=== PATIENT | male | born 1955 | race Caucasian/White ===

== ENCOUNTER 2022-02-27 05:01 | Inpatient (IN) ==
--- NOTE | 2022-02-27 05:19 | Emergency Department Note ---
HPI General Chief complaint: Shortness of Breath/Dyspnea Stated complaint: SOB Time Seen by Provider: 02/27/22 05:18 Source: patient and EMS Mode of arrival: EMS Limitations: no limitations History of Present Illness HPI Narrative: 66-year-old male with past medical history of COPD presenting with shortness of breath. Patient reports for the last week and a half he has had progressively worsening shortness of breath. He thinks it started when he was outside and his pollen allergies flared up. States he has developed a cough productive of beige and dark green sputum. Patient wears home O2 at night. On EMS arrival he was satting 83% on room air. No associated chest pain, fever, or leg swelling. Denies any prior cardiac history. Not on anticoagulation. Related Data Home Medications Medication Instructions Recorded Confirmed albuterol sulfate 90 mcg/actuation 2 puff INHALATION Q4H PRN g 03/16/21 12/16/21 aerosol inhaler ascorbic acid (vitamin C) PO 03/16/21 12/16/21 cholecalciferol (vitamin D3) PO 03/16/21 12/16/21 loratadine 5 mg-pseudoephedrine ER 1 tab PO ONCE PRN tab 03/16/21 12/16/21 120 mg tablet,extended release,12hr (Loratadine-D) multivitamin 1 tab PO QAM 08/17/21 12/16/21 Previous Rx's Medication Instructions Recorded budesonide 160 mcg-glycopyr 9 2 inh INHALATION BID #10.7 g 09/03/21 mcg-formot 4.8 mcg/actuation HFA inhaler (Breztri Aerosphere) Allergies Allergy/AdvReac Type Severity Reaction Status Date / Time animal dander Allergy Mild other Verified 02/27/22 05:02 grass pollen Allergy Mild Other Verified 02/27/22 05:02 mold Allergy Mild Other Verified 02/27/22 05:02 scotchbroom Allergy Mild tightness Uncoded 12/16/21 14:33 in chest Review of Systems ROS ROS Narrative: Narrative: Constitutional: Denies fever or chills ENT ED: Denies throat pain Cardiovascular: Denies chest pain or palpitations Respiratory: Reports shortness of breath, cough and wheezes; Denies stridor Gastrointestinal: Denies abdominal pain, nausea or vomiting Genitourinary: Denies dysuria Musculoskeletal: Denies back pain or joint swelling Integumentary: Denies rash Neurological: Denies headache Psychiatric: Denies anxiety Hematological/Lymphatic: Denies easy bruising PFSH Narrative Patient History Narrative: Narrative: Medical/Surgical/Family History All Active Problems (Updated 02/27/22 @ 06:59 by Deon Ortega MD) Pneumonia involving right lung (Acute) Hypersomnia (Chronic) Nocturnal hypoxia (Chronic) Elevated blood pressure reading (Chronic) Soft tissue mass (Chronic) Other emphysema (Chronic) SOB (shortness of breath) (Chronic) COPD (chronic obstructive pulmonary disease) (Chronic) Dyspnea on exertion (Chronic) Medical History COPD (chronic obstructive pulmonary disease) Dyspnea on exertion Elevated blood pressure reading Hypersomnia Nocturnal hypoxia Other emphysema SOB (shortness of breath) Soft tissue mass Surgical History History of surgery on arm Rt forearm tendon repair. History of vasectomy History of wisdom tooth extraction Family History Mother , 91 Diabetes Goiter Digestive problems Father , 79 Parkinsons Edema Sister Edema Social History Smoking Status: Never smoker Alcohol Intake Frequency: 0-2 drinks per day Substance Use: marijuana Exam Narrative Narrative: Narrative: General Limitations: no limitations General appearance: Present alert and in no apparent distress Head Head: Present atraumatic and normocephalic Eye Eye: Present normal appearance and EOMI; Absent scleral icterus or conjunctival injection ENT ENT: Present mucous membranes moist Neck Neck: Present trachea midline Chest Chest: Present symmetric chest wall rise Respiratory Respiratory: Present respiratory distress (Mild), prolonged expiratory phase and other (Significantly diminished breath sounds in both lungs); Absent rales/crackles, wheezes, stridor or accessory muscle use Cardiovascular Cardiovascular: Present normal rhythm and tachycardia; Absent systolic murmur or diastolic murmur Adbominal Abdominal: Present soft; Absent distention, tenderness, guarding, rebound or rigidity Extremities Extremities: Present normal inspection; Absent pretibial edema Back Back: Present normal inspection Neurological Neurological: Present alert and oriented X3; Absent motor sensory deficit Psychiatric Psychiatric: Present normal affect and normal mood Skin Skin: Present warm (WNL) and dry Course Consultations Consultation #1: Dr. Patel, hospitalist Time: 07:05 Vital Signs Vital signs: Vital Signs Temperature 99.2 F H 02/27/22 05:03 Pulse Rate 115 H 02/27/22 05:03 Respiratory Rate 22 02/27/22 05:03 Blood Pressure 148/121 02/27/22 05:03 Pulse Oximetry (%) 90 02/27/22 05:03 Temperature 99.2 F H 02/27/22 05:03 Pulse Rate 117 H 02/27/22 06:51 Respiratory Rate 18 02/27/22 06:51 Blood Pressure 139/68 02/27/22 06:51 Pulse Oximetry (%) 93 02/27/22 06:39 MDM MDM Narrative Medical decision making narrative: 66-year-old male presenting with progressive shortness of breath and productive cough. He is satting 93 to 95% on 6 L O2 via nasal cannula. He has severely poor air movement in both lungs on exam. EKG shows diffuse ST depressions with no ST elevation. Solu-Medrol 125 mg IV and continuous neb treatment ordered. Will obtain CXR, labs, VBG, blood cultures, and COVID test. Chest x-ray shows significant infiltrate in the right middle and lower lobes. 3.375 g IV Zosyn ordered. VBG shows a pH of 7.43 with a pCO2 of 61 and pO2 of 30.9. WBC count is 25.6. Rapid COVID is negative. 0705: Patient endorsed Dr. Patel, hospitalist, who will accept the patient. Lab Data Result diagrams: 02/27/22 06:13 02/27/22 06:13 Labs: Lab Results 02/27/22 02/27/22 02/27/22 Range/Units 06:13 06:13 06:13 WBC 25.6 H (4.5-11.0) K/mcL RBC 4.23 L (4.63-6.08) M/mcL Hgb 12.6 L (13.7-17.5) g/dL Hct 38.7 L (40.1-51.0) % MCV 91.5 (80.0-100.0) fL MCH 29.8 (26.0-34.0) pg MCHC 32.6 (31.0-36.0) g/dL RDW 13.4 (11.5-14.5) % Plt Count 495 H (140-440) K/mcL MPV 10.9 H (7.4-10.4) fL Neut % (Auto) 85.6 H (38.0-78.0) % Lymph % (Auto) 4.6 L (15.5-49.0) % [place] % (Auto) 9.2 (1.0-12.0) % Eos % (Auto) 0.2 (0.0-7.0) % Baso % (Auto) 0.4 (0.0-2.0) % Lymph # (Auto) 1.17 L (1.50-4.80) K/mcL [place] # (Auto) 2.36 H (0.10-0.90) K/mcL Eos # (Auto) 0.05 (0.00-0.70) K/mcL Baso # (Auto) 0.09 (0.00-0.30) K/mcL Absolute Neutrophils 21.88 H (1.80-8.00) K/mcL ABG Methemoglobin 0.3 L (0.4-1.5) % VBG pH 7.43 H (7.32-7.42) U VBG pCO2 61.0 H* (41.0-51.0) mmHg VBG pO2 30.9 (25.0-40.0) mmHg VBG HCO3 39.4 H (24.0-28.0) mmol/L VBG Total CO2 41.3 H* (25.0-29.0) mmol/L VBG O2 Saturation 58.8 (40.0-70.0) % VBG Base Excess 12 H (-2-3) Carboxyhemoglobin 4.7 H (0.0-1.5) % THgb Total Hemoglobin 14.2 (13.5-16.5) gm/Dl Sodium 138 (133-145) mmol/L Potassium 3.0 L (3.3-5.1) mmol/L Chloride 88 L (96-108) mmol/L Carbon Dioxide 39 H (22-30) mmol/L Anion Gap 11.0 (8.0-16.0) BUN 22 (8-23) mg/dL Creatinine 0.9 (0.7-1.2) mg/dL GFR Calculation 87 Glucose 146 H (70-105) mg/dL Calcium 9.1 (8.6-10.4) mg/dL Total Bilirubin 1.0 (0.1-1.0) mg/dL AST 76 H (<40) U/L ALT 60 H (<40) U/L Alkaline Phosphatase 190 H (39-117) U/L Total Protein 7.0 (5.9-8.4) gm/dL Albumin 2.2 L (3.2-5.2) gm/dL Globulin 4.8 H (2.2-3.7) gm/dL Albumin/Globulin Ratio 0.5 L (1.0-2.3) ED POC Tests ED POC Tests: DELVIN - SARS Antigen Negative Radiology Data Radiology results reviewed: Yes I reviewed the patient's radiology results. Radiology results narrative: Chest x-ray: Significant infiltrates present in the right middle and right lower lobes, per my interpretation. EKG Data EKG #1: EKG attestation: Yes I reviewed and interpreted this EKG. and Yes There are no EKG findings of acute coronary syndrome EKG results narrative: Sinus tachycardia at [address] depressions noted, no ST elevation Interpretation: nonspecific ST-T wave changes Discharge Plan Patient/Caregiver Discharge Instructions Pt seen by [facility]/PA only: No Clinical Impression: Pneumonia involving right lung Patient Disposition: Xfer As Inpt ([facility]) Condition: Fair Follow up with: Karlie Knight ARNP [Primary Care Provider] - Prescriptions: No Action [facility] 160-9-4.8 mcg/actuation HFA aerosol inhaler 2 inh inhalation BID Qty: 10.7 6RF Rx Instructions: Inhale two puffs by mouth twice daily. cholecalciferol (vitamin D3) PO 0RF ascorbic acid (vitamin C) PO 0RF albuterol sulfate 90 mcg/actuation HFA aerosol inhaler 2 puff inhalation Q4H PRN0RF Loratadine-D 5-120 mg tablet extended release 12 hr 1 tab PO ONCE PRN0RF multivitamin Tablet 1 tab PO QAM 0RF
[2022-02-27] MEDS ORDERED: methylPREDNISolone SOD SUCC 125 MG/2 ML VIAL IV ONE (05:26)
[2022-02-27] MEDS ORDERED: ALBUTEROL SULFATE 5 MG/ML NEB SOLUTION BOTTLE NEB ONE (05:29)
[2022-02-27] MEDS ORDERED: PIPERACILLIN SODIUM/TAZOBACTAM 3.375 GM in DEXTROSE 5% IN WATER 50 ML IV ONE (05:46)
--- NOTE | 2022-02-27 05:55 | XRay Report ---
CLINICAL INFORMATION: History of COPD. Cough and fever COMPARISON: Chest CT 05/18/2021 TECHNIQUE: PA and Lateral views FINDINGS: The heart size, mediastinum and pulmonary vessels are unremarkable. COPD changes noted. Moderate rounded area of consolidated filtrates or infiltrate-like mass is developed in the right hilum. Moderate interstitial/alveolar infiltrate in the right mid and lower lung with a small right pleural effusion also seen. IMPRESSION: Moderate infiltrate right mid and lower lung compatible with pneumonia. There is increased rounded density in the right hilum which could indicate underlying mass. Suggest repeat two-view chest x-ray in 3-4 weeks when patient returns a clinical baseline to assess for any underlying right hilar mass which may indicate pulmonary malignancy Interpreted and Authenticated by: Raad Wall 02/27/22
[2022-02-27 06:45] LABS: ABG Methemoglobin 0.3 % (0.4-1.5); Total Hemoglobin 14.2 gm/Dl (13.5-16.5); VBG Base Excess 12 (-2-3); VBG HCO3 39.4 mmol/L (24.0-28.0); VBG Oxygen Saturation 58.8 % (40.0-70.0); VBG PH 7.43 U (7.32-7.42); VBG PO2 30.9 mmHg (25.0-40.0); VBG Total CO2 41.3 mmol/L (25.0-29.0)
[2022-02-27 06:56] LABS: Basophils # (Auto) 0.09 K/mcL (0.00-0.30); Basophils % (Auto) 0.4 % (0.0-2.0); Eosinophils # (Auto) 0.05 K/mcL (0.00-0.70); Eosinophils % (Auto) 0.2 % (0.0-7.0); Hematocrit 38.7 % (40.1-51.0); Hemoglobin 12.6 g/dL (13.7-17.5); Lymphocytes # (Auto) 1.17 K/mcL (1.50-4.80); Lymphocytes % (Auto) 4.6 % (15.5-49.0); Mean Cell Volume 91.5 fL (80.0-100.0); Mean Corpuscular HGB Conc 32.6 g/dL (31.0-36.0); Mean Platelet Volume 10.9 fL (7.4-10.4); Monocytes # (Auto) 2.36 K/mcL (0.10-0.90); Monocytes % (Auto) 9.2 % (1.0-12.0); Neutrophils % (Auto) 85.6 % (38.0-78.0); Platelet Count 495 K/mcL (140-440); RBC 4.23 M/mcL (4.63-6.08); Red Cell Distribution Width 13.4 % (11.5-14.5); WBC 25.6 K/mcL (4.5-11.0)
[2022-02-27 07:04] LABS: ALT/SGPT 60 U/L (<40); AST/SGOT 76 U/L (<40); Albumin 2.2 gm/dL (3.2-5.2); Albumin/Globulin Ratio 0.5 (1.0-2.3); Alkaline Phosphatase 190 U/L (39-117); Blood Urea Nitrogen 22 mg/dL (8-23); Calcium 9.1 mg/dL (8.6-10.4); Carbon Dioxide 39 mmol/L (22-30); Chloride 88 mmol/L (96-108); Globulin 4.8 gm/dL (2.2-3.7); Glomerular Filtration Rate 87; Glucose 146 mg/dL (70-105)
[2022-02-27] MEDS ORDERED: MELATONIN 3 MG TABLET PO PRN (07:55)
[2022-02-27] MEDS ORDERED: ONDANSETRON 4 MG/2 ML VIAL IV PRN (07:55)
[2022-02-27] MEDS ORDERED: QUEtiapine 25 MG TABLET PO PRN (07:55)
[2022-02-27] MEDS ORDERED: traMADol 50 MG TABLET PO PRN (07:55)
[2022-02-27] MEDS ORDERED: hydrALAZINE 20 MG/ML VIAL IV PRN (07:55)
[2022-02-27] MEDS ORDERED: DILTIAZEM 25 MG/5 ML VIAL IV PRN (07:55)
[2022-02-27] MEDS ORDERED: ACETAMINOPHEN 325 MG TABLET PO PRN (07:57)
[2022-02-27] MEDS ORDERED: ALBUTEROL SULFATE 2.5 MG/3 ML NEBULIZER NEB PRN (07:57)
[2022-02-27] MEDS ORDERED: PROCHLORPERAZINE 10 MG/2 ML VIAL IV PRN (07:57)
[2022-02-27] MEDS: 0.9 % SODIUM CHLORIDE 1,000 ML IV SCH ×2 (08:34→23:37)
[2022-02-27] MEDS ORDERED: POTASSIUM CHLORIDE 20 MEQ TABLET PO ONE (09:57)
[2022-02-27] MEDS: ENOXAPARIN 40 MG/0.4 ML SYRINGE SQ SCH (10:11)
[2022-02-27] MEDS: AZITHROMYCIN 500 MG in DEXTROSE 5% IN WATER 250 ML IV SCH (10:13)
[2022-02-27] MEDS: DOCUSATE SODIUM 100 MG CAPSULE PO SCH ×2 (12:00→21:01)
[2022-02-27] MEDS: PIPERACILLIN SODIUM/TAZOBACTAM 3.375 GM in DEXTROSE 5% IN WATER 50 ML IV SCH ×3 (12:47→23:38)
[2022-02-27] MEDS: methylPREDNISolone SOD SUCC 125 MG/2 ML VIAL IV SCH ×2 (14:49→21:45)
[2022-02-27] MEDS: 0.9 % SODIUM CHLORIDE 10 ML SYRINGE IV SCH ×2 (14:54→21:48)
[2022-02-27] MEDS: IPRATROPIUM/ALBUTEROL 3 ML AMPUL.NEB NEB SCH ×4 (15:28→22:08)
[2022-02-27] MEDS: BUDESONIDE 0.5 MG/2 ML AMPUL.NEB NEB SCH ×2 (16:08→18:59)
[2022-02-27] MEDS: POTASSIUM CHLORIDE 20 MEQ TABLET PO SCH (17:31)
[2022-02-27] MEDS: TAMSULOSIN 0.4 MG CAPSULE PO SCH ×2 (17:31→21:00)
[2022-02-27] MEDS ORDERED: TAMSULOSIN 0.4 MG CAPSULE PO ONE (17:39)
[2022-02-27] MEDS ORDERED: traZODone HCL 50 MG TABLET PO PRN (21:00)
[2022-02-27] MEDS: SENNOSIDES 1 TABLET PO SCH (21:01)
--- NOTE | 2022-02-27 22:31 | Internal Med History&Physical ---
HPI History of Present Illness Patient information: Note initiated : 02/27/22 at 10:30 pm Service Date, if different from initiated Date: [] Patient: Diomedes Noyola 66 y/o M admitted on 02/27/22 for Shortness of breath. Chief Complaint: [] History of present illness: Mr. Noyola is a 66 year old M 66-year-old gentleman with a history of previous history of COPD has been having worsening shortness of breath for the last few days and his symptoms are progressively worsened and with a worsening cough and dark green sputum patient was brought to the ER by the EMS upon arrival his oxygenation was 83% on room air patient denied any other chest symptoms of that shortness of breath and cough and sputum production. He was evaluated in the ER and chest x-ray showing significant pneumonia with consolidation and COPD exacerbation. Patient was started on duo nebs and broad- spectrum antibiotic and admitted to the facility for further management Review of systems Constitutional: Chills no recorded fever Eyes: no vision changes or pain Cardiovascular: no chest pain, no palpitations Respiratory worsening shortness of breath, cough, green sputum production and wheezing Gastrointestinal: no nausea and stil have abdominal discomfort. Genitourinary: no dysuria or difficulty voiding Musculoskeletal: no arthralgia or myalgia Integumentary: no skin lesion or wound Neurological: no focal weakness or numbness Psychiatric: no anxiety or depression Physical exam Head: In distress, no bruises, normal-appearing nontraumatic Eyes: normal appearance, no scleral icterus. Neck: full ROM Respiratory: In respiratory distress needing 3 to 4 L of nasal cannula oxygen, bilateral crackles and extensive wheezing Cardiovascular: normal rate and rhythm, S1, S2. GI/Abdominal: soft, nontender, no guarding. Extremities: full range of motion, nontender. Neurological: CN II-XII intact, intact motor, intact sensation. Psychiatric: normal mood. Skin: warm, normal color PFSH PFSH All Active Problems (Updated 02/27/22 @ 06:59 by Deon Ortega MD) Pneumonia involving right lung (Acute) Hypersomnia (Chronic) Nocturnal hypoxia (Chronic) Elevated blood pressure reading (Chronic) Soft tissue mass (Chronic) Other emphysema (Chronic) SOB (shortness of breath) (Chronic) COPD (chronic obstructive pulmonary disease) (Chronic) Dyspnea on exertion (Chronic) Medical History COPD (chronic obstructive pulmonary disease) Dyspnea on exertion Elevated blood pressure reading Hypersomnia Nocturnal hypoxia Other emphysema SOB (shortness of breath) Soft tissue mass Surgical History History of surgery on arm Rt forearm tendon repair. History of vasectomy History of wisdom tooth extraction Family History Mother , 91 Diabetes Goiter Digestive problems Father , 79 Parkinsons Edema Sister Edema Social History marital status: occupational status: retired physical activity: walking and bicycling smoking status: Former smoker smoking status stop date: 09/05/16 alcohol intake frequency: 0-2 drinks per day substance use type: marijuana MEDS/ALLERGIES Home Medications and Allergies Home Medications Medication Instructions Recorded Confirmed Type albuterol sulfate 90 mcg/actuation 2 puff INHALATION Q4H PRN g 03/16/21 02/27/22 History aerosol inhaler ascorbic acid (vitamin C) 1 tab PO QDAY 03/16/21 02/27/22 History cholecalciferol (vitamin D3) 1 tab PO QDAY 03/16/21 02/27/22 History loratadine 5 mg-pseudoephedrine ER 1 tab PO QDAY tab 03/16/21 02/27/22 History 120 mg tablet,extended release,12hr (Loratadine-D) multivitamin 1 tab PO QAM 08/17/21 02/27/22 History budesonide 160 mcg-glycopyr 9 2 inh INHALATION BID #10.7 g 09/03/21 02/27/22 Rx mcg-formot 4.8 mcg/actuation HFA inhaler (Breztri Aerosphere) Allergies Allergy/AdvReac Type Severity Reaction Status Date / Time animal dander Allergy Mild other Verified 02/27/22 05:02 grass pollen Allergy Mild Other Verified 02/27/22 05:02 mold Allergy Mild Other Verified 02/27/22 05:02 scotchbroom Allergy Mild tightness Uncoded 12/16/21 14:33 in chest EXAM Constitutional Vitals: Temp Pulse Resp BP Pulse Ox 99.6 F H 100 H 12 153/84 96 02/27/22 19:54 02/27/22 22:08 02/27/22 22:08 02/27/22 19:54 02/27/22 22:08 DATA Data Completed and Pending Labs: Labs from last 24 hours 02/27/22 02/27/22 02/27/22 06:13 06:13 06:13 WBC RBC Hgb Hct MCV MCH MCHC RDW Plt Count MPV Neut % (Auto) Lymph % (Auto) [place] % (Auto) Eos % (Auto) Baso % (Auto) Lymph # (Auto) [place] # (Auto) Eos # (Auto) Baso # (Auto) Absolute Neutrophils ABG Methemoglobin 0.3 L VBG pH 7.43 H VBG pCO2 61.0 H* VBG pO2 30.9 VBG HCO3 39.4 H VBG Total CO2 41.3 H* VBG O2 Saturation 58.8 VBG Base Excess 12 H Carboxyhemoglobin 4.7 H Total Hemoglobin 14.2 Sodium 138 Potassium 3.0 L Chloride 88 L Carbon Dioxide 39 H Anion Gap 11.0 BUN 22 Creatinine 0.9 GFR Calculation 87 Glucose 146 H Calcium 9.1 Total Bilirubin 1.0 AST 76 H ALT 60 H Alkaline Phosphatase 190 H Total Protein 7.0 Albumin 2.2 L Globulin 4.8 H Albumin/Globulin Ratio 0.5 L Procalcitonin 1.24 H 02/27/22 06:13 WBC 25.6 H RBC 4.23 L Hgb 12.6 L Hct 38.7 L MCV 91.5 MCH 29.8 MCHC 32.6 RDW 13.4 Plt Count 495 H MPV 10.9 H Neut % (Auto) 85.6 H Lymph % (Auto) 4.6 L [place] % (Auto) 9.2 Eos % (Auto) 0.2 Baso % (Auto) 0.4 Lymph # (Auto) 1.17 L [place] # (Auto) 2.36 H Eos # (Auto) 0.05 Baso # (Auto) 0.09 Absolute Neutrophils 21.88 H ABG Methemoglobin VBG pH VBG pCO2 VBG pO2 VBG HCO3 VBG Total CO2 VBG O2 Saturation VBG Base Excess Carboxyhemoglobin Total Hemoglobin Sodium Potassium Chloride Carbon Dioxide Anion Gap BUN Creatinine GFR Calculation Glucose Calcium Total Bilirubin AST ALT Alkaline Phosphatase Total Protein Albumin Globulin Albumin/Globulin Ratio Procalcitonin Preliminary micro results at discharge 02/27/22 13:49 Gram Stain - Preliminary Sputum source - Expectorated A/P Narrative Plan of Treatment: Sepsis Community-acquired pneumonia Patient presented with leukocytosis and tachycardia No hypotension Sputum gram stain culture ordered Blood culture done in the ED Plan Patient was started on Zosyn and azithromycin continue IV fluid hydration Follow-up on blood culture and sputum culture Acute hypoxemic hypercapnic respiratory failure COPD exacerbation Started on Solu-Medrol 60 every 8 hourly DuoNebs every 4 hours and as needed Hypokalemia Nutritional Ordered potassium replacement Urinary retention Patient reported urinary retention Started him on Flomax 0.8 Monitor and straight cath as needed DVT prophylaxis-subcu Lovenox CODE STATUS-full code Time Spent With Patient Time: Total time spent is greater than 50% in coordination of care (as documented) at patient's floor/unit and/or counseling patient: Total time spent with greater than 50% in coordination of care (as documented) at patient's floor/unit and/or counseling patient:: 50 - 70 minutes Critical Care Time: No QUALITY VTE Deep Vein Thrombosis/Pulmonary Embolism Present on Admission: No
[2022-02-28] MEDS: IPRATROPIUM/ALBUTEROL 3 ML AMPUL.NEB NEB SCH ×6 (03:09→22:03)
[2022-02-28] MEDS: PIPERACILLIN SODIUM/TAZOBACTAM 3.375 GM in DEXTROSE 5% IN WATER 50 ML IV SCH ×3 (04:56→17:40)
[2022-02-28] MEDS: methylPREDNISolone SOD SUCC 125 MG/2 ML VIAL IV SCH ×3 (05:46→21:23)
[2022-02-28] MEDS: 0.9 % SODIUM CHLORIDE 10 ML SYRINGE IV SCH ×3 (05:46→21:23)
[2022-02-28 06:43] LABS: Basophils # (Auto) 0.07 K/mcL (0.00-0.30); Basophils % (Auto) 0.4 % (0.0-2.0); Eosinophils # (Auto) 0 K/mcL (0.00-0.70); Eosinophils % (Auto) 0 % (0.0-7.0); Hematocrit 32.9 % (40.1-51.0); Hemoglobin 10.6 g/dL (13.7-17.5); Lymphocytes # (Auto) 0.81 K/mcL (1.50-4.80); Lymphocytes % (Auto) 4.5 % (15.5-49.0); Mean Cell Volume 92.7 fL (80.0-100.0); Mean Corpuscular HGB Conc 32.2 g/dL (31.0-36.0); Mean Platelet Volume 10.8 fL (7.4-10.4); Monocytes # (Auto) 0.49 K/mcL (0.10-0.90); Monocytes % (Auto) 2.7 % (1.0-12.0); Neutrophils % (Auto) 92.4 % (38.0-78.0); Platelet Count 474 K/mcL (140-440); RBC 3.55 M/mcL (4.63-6.08); Red Cell Distribution Width 13.7 % (11.5-14.5); WBC 18.2 K/mcL (4.5-11.0)
[2022-02-28 07:05] LABS: ALT/SGPT 69 U/L (<40); AST/SGOT 101 U/L (<40); Albumin/Globulin Ratio 0.5 (1.0-2.3); Alkaline Phosphatase 139 U/L (39-117); Bilirubin,Total 0.4 mg/dL (0.1-1.0); Blood Urea Nitrogen 28 mg/dL (8-23); Calcium 8.7 mg/dL (8.6-10.4); Carbon Dioxide 37 mmol/L (22-30); Chloride 92 mmol/L (96-108); Globulin 3.9 gm/dL (2.2-3.7); Glomerular Filtration Rate 97; Glucose 173 mg/dL (70-105)
[2022-02-28] MEDS: BUDESONIDE 0.5 MG/2 ML AMPUL.NEB NEB SCH ×3 (07:06→22:20)
[2022-02-28] MEDS: PANTOPRAZOLE 40 MG TABLET PO SCH (07:55)
[2022-02-28] MEDS: POTASSIUM CHLORIDE 20 MEQ TABLET PO SCH ×2 (07:55→16:50)
[2022-02-28] MEDS: ENOXAPARIN 40 MG/0.4 ML SYRINGE SQ SCH (07:55)
[2022-02-28] MEDS: DOCUSATE SODIUM 100 MG CAPSULE PO SCH ×2 (09:11→21:23)
[2022-02-28] MEDS: AZITHROMYCIN 500 MG in DEXTROSE 5% IN WATER 250 ML IV SCH (11:00)
--- NOTE | 2022-02-28 11:37 | Internal Med Progress Note ---
SUBJECTIVE Subjective Patient information: Note initiated : 02/28/22 at 11:37 am Service Date, if different from initiated Date: [] Patient: Diomedes Noyola 66 y/o M admitted on 02/27/22 for Shortness of breath. Chief Complaint: [] Interval history: 66-year-old gentleman with a history of previous history of COPD has been having worsening shortness of breath for the last few days and his symptoms are progressively worsened and with a worsening cough and dark green sputum patient was brought to the ER by the EMS upon arrival his oxygenation was 83% on room air patient denied any other chest symptoms of that shortness of breath and cough and sputum production. He was evaluated in the ER and chest x-ray showing significant pneumonia with co nsolidation and COPD exacerbation. Patient was started on duo nebs and broad- spectrum antibiotic and admitted to the facility for further management 02/28 Patient's oxygenation is improving on 4 L nasal cannula oxygen Patient is feeling better his shortness of breath is better No fever overnight Continuing broad-spectrum antibiotic Sputum culture pending Review of systems Constitutional: Chills no recorded fever Eyes: no vision changes or pain Cardiovascular: no chest pain, no palpitations Respiratory-shortness of breath and cough improving Gastrointestinal: no nausea and stil have abdominal discomfort. Genitourinary: no dysuria or difficulty voiding Musculoskeletal: no arthralgia or myalgia Integumentary: no skin lesion or wound Neurological: no focal weakness or numbness Psychiatric: no anxiety or depression Physical exam Head: In distress, no bruises, normal-appearing nontraumatic Eyes: normal appearance, no scleral icterus. Neck: full ROM Respiratory: Wheezing improved still having crackles Cardiovascular: normal rate and rhythm, S1, S2. GI/Abdominal: soft, nontender, no guarding. Extremities: full range of motion, nontender. Neurological: CN II-XII intact, intact motor, intact sensation. Psychiatric: normal mood. Skin: warm, normal color Constitutional Vitals: Vital Signs Temp Pulse Resp BP Pulse Ox 97.7 F 90 20 121/74 93 02/28/22 08:00 02/28/22 11:26 02/28/22 11:26 02/28/22 08:00 02/28/22 11:26 Period Temp Pulse Resp BP Sys/Bourgeois Pulse Ox Last 24 Hr 97.7 F-99.6 F 90-110 09-02 121-172/68-84 90-99 Intake and Output 02/27/22 02/28/22 02/28/22 21:59 05:59 13:59 Intake Total 2490 450 290 Output Total 725 150 Balance 1765 300 290 Weight 85.411 kg 85.411 kg Intake & Output: Intake & Output 02/27/22 02/28/22 02/28/22 21:59 05:59 13:59 Intake Total 2490 450 290 Output Total 725 150 Balance 1765 300 290 Weight 85.411 kg 85.411 kg Intake: IV 1050 50 50 Sodium Chloride 0.9% 1,000 ml @ 1000 75 mls/hr IV .[id number] [facility] Rx#: [id number] Zosyn 3.375 gm In Dextrose 5% 50 50 50 in Water 50 ml @ 100 mls/hr IV Q6H [facility] Rx#:[id number] Oral 1440 400 240 Output: Void Amount 725 150 Other: Meal Breakfast Percent of Meal Consumed 100% Feeding Ability Independent Urine Appearance Clear Clear Urine Color Dark Yellow Light Kacey Urine Odor Normal OBJ DATA Labs CBC & Chem 7: 02/28/22 05:00 02/28/22 05:00 Labs: Abnormal Lab Results 02/28/22 02/28/22 02/27/22 05:00 05:00 06:13 WBC 18.2 H RBC 3.55 L Hgb 10.6 L Hct 32.9 L Plt Count 474 H MPV 10.8 H Neut % (Auto) 92.4 H Lymph % (Auto) 4.5 L Lymph # (Auto) 0.81 L [place] # (Auto) Absolute Neutrophils 16.79 H ABG Methemoglobin 0.3 L VBG pH 7.43 H VBG pCO2 61.0 H* VBG HCO3 39.4 H VBG Total CO2 41.3 H* VBG Base Excess 12 H Carboxyhemoglobin 4.7 H Potassium Chloride 92 L Carbon Dioxide 37 H BUN 28 H Glucose 173 H Magnesium 2.7 H AST 101 H ALT 69 H Alkaline Phosphatase 139 H Albumin 2.0 L Globulin 3.9 H Albumin/Globulin Ratio 0.5 L Procalcitonin 02/27/22 02/27/22 02/27/22 06:13 06:13 06:13 WBC 25.6 H RBC 4.23 L Hgb 12.6 L Hct 38.7 L Plt Count 495 H MPV 10.9 H Neut % (Auto) 85.6 H Lymph % (Auto) 4.6 L Lymph # (Auto) 1.17 L [place] # (Auto) 2.36 H Absolute Neutrophils 21.88 H ABG Methemoglobin VBG pH VBG pCO2 VBG HCO3 VBG Total CO2 VBG Base Excess Carboxyhemoglobin Potassium 3.0 L Chloride 88 L Carbon Dioxide 39 H BUN Glucose 146 H Magnesium AST 76 H ALT 60 H Alkaline Phosphatase 190 H Albumin 2.2 L Globulin 4.8 H Albumin/Globulin Ratio 0.5 L Procalcitonin 1.24 H Meds: Medications Acetaminophen (Acetaminophen 325 Mg Tablet) 650 mg PO Q6HP PRN; Protocol PRN Reason: Per Pain Protocol/Fever > 101 Albuterol Sulfate (Albuterol Sulfate 2.5 Mg/3 Ml Nebulizer) 2.5 mg NEB Q2HP PRN PRN Reason: Shortness Of Breath Albuterol/Ipratropium (Ipratropium/Albuterol 3 Ml Ampul.Neb) 3 ml NEB Q4HRT [facility] Last Admin: 02/28/22 11:19 Dose: 3 ml Documented by: Budesonide (Budesonide 0.5 Mg/2 Ml Ampul.Neb) 0.5 mg NEB Q12 [facility] Last Admin: 02/28/22 07:06 Dose: 0.5 mg Documented by: Diltiazem HCl (Diltiazem 25 Mg/5 Ml Vial) 10 mg IV Q4HP PRN PRN Reason: Tachyarrhythmias Docusate Sodium (Docusate Sodium 100 Mg Capsule) 100 mg PO BID [facility] Last Admin: 02/28/22 09:11 Dose: Not Given Documented by: Enoxaparin Sodium (Enoxaparin 40 Mg/0.4 Ml Syringe) 40 mg SQ DAILY [facility] Last Admin: 02/28/22 07:55 Dose: 40 mg Documented by: Hydralazine HCl (Hydralazine 20 Mg/Ml Vial) 10 mg IV Q4-6HP PRN PRN Reason: Hypertension Piperacillin Sod/Tazobactam (Sod 3.375 gm/ Dextrose) 50 mls @ 100 mls/hr IV Q6H [facility]; Protocol Last Infusion: 02/28/22 08:00 Dose: Infused Documented by: Azithromycin 500 mg/ Dextrose 250 mls @ 250 mls/hr IV Q24H [facility]; Protocol Stop: 03/01/22 10:59 Last Admin: 02/28/22 11:00 Dose: 250 mls/hr Documented by: Melatonin (Melatonin 3 Mg Tablet) 3 mg PO HSP PRN PRN Reason: Insomnia Methylprednisolone Sodium Succinate (Methylprednisolone Sod Succ 125 Mg/2 Ml Vial) 62.5 mg IV Q8 [facility] Last Admin: 02/28/22 05:46 Dose: 62.5 mg Documented by: Ondansetron HCl (Ondansetron 4 Mg/2 Ml Vial) 4 mg IV Q6HP PRN PRN Reason: Nausea And Vomiting Pantoprazole Sodium (Pantoprazole 40 Mg Tablet) 40 mg PO QAMAC [facility] Last Admin: 02/28/22 07:55 Dose: 40 mg Documented by: Potassium Chloride (Potassium Chloride 20 Meq Tablet) 40 meq PO BIDCC [facility] Stop: 03/01/22 08:01 Last Admin: 02/28/22 07:55 Dose: 40 meq Documented by: Prochlorperazine (Prochlorperazine 10 Mg/2 Ml Vial) 5 mg IV Q4HP PRN PRN Reason: Nausea And Vomiting Quetiapine Fumarate (Quetiapine 25 Mg Tablet) 12.5 mg PO HSP PRN PRN Reason: iNSOMNIA-2nd option Senna (Sennosides 1 Tablet) 2 tab PO [facility] Last Admin: 02/27/22 21:01 Dose: Not Given Documented by: Sodium Chloride (0.9 % Sodium Chloride 10 Ml Syringe) 10 ml IV Q8 [facility] Last Admin: 02/28/22 05:46 Dose: 10 ml Documented by: Tamsulosin HCl (Tamsulosin 0.4 Mg Capsule) 0.8 mg PO [facility] Last Admin: 02/27/22 21:00 Dose: Not Given Documented by: Tramadol HCl (Tramadol 50 Mg Tablet) 50 mg PO Q4-6HP PRN; Protocol PRN Reason: Pain Trazodone HCl (Trazodone Hcl 50 Mg Tablet) 25 mg PO HSP PRN PRN Reason: Insomnia ABG Interpretation ABG results: 02/27/22 06:13 ABG Methemoglobin 0.3 L VBG pH 7.43 H VBG pCO2 61.0 H* VBG pO2 30.9 VBG HCO3 39.4 H VBG Total CO2 41.3 H* VBG O2 Saturation 58.8 VBG Base Excess 12 H A/P Narrative Plan of Treatment: Sepsis-improving Community-acquired pneumonia Patient presented with leukocytosis and tachycardia-improved No hypotension Sputum gram stain culture-pending Blood culture done in the ED-pending Plan Continue Zosyn and azithromycin continue Discontinue IV fluid Follow-up on blood culture and sputum culture Acute hypoxemic hypercapnic respiratory failure COPD exacerbation Started on Solu-Medrol 60 every 8 hourly-continued DuoNebs every 4 hours and as needed Hypokalemia Nutritional Ordered potassium replacement Urinary retention Patient reported urinary retention Started him on Flomax 0.8 Monitor and straight cath as needed DVT prophylaxis-subcu Lovenox CODE STATUS-full code Time Spent With Patient Time: Total time spent is greater than 50% in coordination of care (as documented) at patient's floor/unit and/or counseling patient: QUALITY VTE Deep Vein Thrombosis/Pulmonary Embolism Present on Admission: No
[2022-02-28] MEDS: SENNOSIDES 1 TABLET PO SCH (21:23)
[2022-02-28] MEDS: TAMSULOSIN 0.4 MG CAPSULE PO SCH (21:23)
[2022-03-01] MEDS: PIPERACILLIN SODIUM/TAZOBACTAM 3.375 GM in DEXTROSE 5% IN WATER 50 ML IV SCH ×3 (00:27→12:28)
[2022-03-01] MEDS: IPRATROPIUM/ALBUTEROL 3 ML AMPUL.NEB NEB SCH ×2 (03:36→07:31)
[2022-03-01] MEDS: 0.9 % SODIUM CHLORIDE 10 ML SYRINGE IV SCH (05:59)
[2022-03-01] MEDS: methylPREDNISolone SOD SUCC 125 MG/2 ML VIAL IV SCH (06:01)
[2022-03-01 06:39] LABS: Basophils # (Auto) 0.05 K/mcL (0.00-0.30); Basophils % (Auto) 0.3 % (0.0-2.0); Eosinophils # (Auto) 0 K/mcL (0.00-0.70); Eosinophils % (Auto) 0 % (0.0-7.0); Hemoglobin 10.1 g/dL (13.7-17.5); Lymphocytes # (Auto) 0.83 K/mcL (1.50-4.80); Lymphocytes % (Auto) 4.9 % (15.5-49.0); Mean Cell Volume 91.2 fL (80.0-100.0); Mean Corpuscular HGB Conc 32.6 g/dL (31.0-36.0); Mean Platelet Volume 10.3 fL (7.4-10.4); Monocytes % (Auto) 5.4 % (1.0-12.0); Neutrophils % (Auto) 89.4 % (38.0-78.0); Platelet Count 534 K/mcL (140-440); Red Cell Distribution Width 13.8 % (11.5-14.5); WBC 16.8 K/mcL (4.5-11.0)
[2022-03-01 07:07] LABS: ALT/SGPT 111 U/L (<40); AST/SGOT 123 U/L (<40); Albumin 2.2 gm/dL (3.2-5.2); Albumin/Globulin Ratio 0.7 (1.0-2.3); Alkaline Phosphatase 127 U/L (39-117); Bilirubin,Total 0.3 mg/dL (0.1-1.0); Blood Urea Nitrogen 23 mg/dL (8-23); Calcium 8.6 mg/dL (8.6-10.4); Carbon Dioxide 35 mmol/L (22-30); Chloride 94 mmol/L (96-108); Globulin 3.3 gm/dL (2.2-3.7); Glomerular Filtration Rate 97; Glucose 155 mg/dL (70-105)
[2022-03-01] MEDS: BUDESONIDE 0.5 MG/2 ML AMPUL.NEB NEB SCH (07:31)
[2022-03-01] MEDS: ENOXAPARIN 40 MG/0.4 ML SYRINGE SQ SCH (08:29)
[2022-03-01] MEDS: DOCUSATE SODIUM 100 MG CAPSULE PO SCH (08:29)
[2022-03-01] MEDS: POTASSIUM CHLORIDE 20 MEQ TABLET PO SCH (08:29)
[2022-03-01] MEDS: PANTOPRAZOLE 40 MG TABLET PO SCH (08:29)
--- NOTE | 2022-03-01 10:04 | Discharge Summary ---
Discharge Provider Provider IMPORTANT FOLLOW-UP INFORMATION FOR PCP: Patient information: Note initiated : 03/01/22 at 10:03 am Service Date, if different from initiated Date: [] Patient: Diomedes Noyola 66 y/o M admitted on 02/27/22 for Shortness of breath. Chief Complaint: [] Date of admission: 02/27/22 08:12 Discharge date: 03/01/22 Primary care physician: Karlie Knight Consults: 02/27/22 Consult to Physician [CONS] Stat Comment: Consulting Provider: Mark Patel Reason For Exam: Physician to Consult COURSE Hospital Course Hospital course: Sepsis-improved Community-acquired pneumonia Patient presented with leukocytosis and tachycardia-improved No hypotension Sputum gram stain midoioq-doti-ustaujzn cocci in clusters and chains blood culture done in the ED-no growth so far Plan Patient wanted to be discharged home Zosyn transition to Augmentin and doxycycline Acute hypoxemic hypercapnic respiratory failure COPD exacerbation Solu-Medrol transition to prednisone 20 mg for 5 more days Continued his home inhaler Hypokalemia Nutritional Ordered potassium replacement Urinary retention Patient reported urinary retention Started him on Flomax 0.8 Monitor and straight cath as needed DVT prophylaxis-subcu Lovenox CODE STATUS-full code 66-year-old gentleman with a history of previous history of COPD has been having worsening shortness of breath for the last few days and his symptoms are progressively worsened and with a worsening cough and dark green sputum patient was brought to the ER by the EMS upon arrival his oxygenation was 83% on room a ir patient denied any other chest symptoms of that shortness of breath and cough and sputum production. He was evaluated in the ER and chest x-ray showing significant pneumonia with consolidation and COPD exacerbation. Patient was started on duo nebs and broad- spectrum antibiotic and admitted to the facility for further management 02/28 Patient's oxygenation is improving on 4 L nasal cannula oxygen Patient is feeling better his shortness of breath is better No fever overnight Continuing broad-spectrum antibiotic Sputum culture pending 03/01 Patient is feeling better on 2 L of nasal cannula oxygen which is his baseline Cough is almost gone Patient wanted to be discharged home Will be discharged on Augmentin and doxycycline with prednisone for 5 more days Review of systems Constitutional: Chills no recorded fever Eyes: no vision changes or pain Cardiovascular: no chest pain, no palpitations Respiratory-shortness of breath and cough improving Gastrointestinal: no nausea and stil have abdominal discomfort. Genitourinary: no dysuria or difficulty voiding Musculoskeletal: no arthralgia or myalgia Integumentary: no skin lesion or wound Neurological: no focal weakness or numbness Psychiatric: no anxiety or depression Physical exam Head: In distress, no bruises, normal-appearing nontraumatic Eyes: normal appearance, no scleral icterus. Neck: full ROM Respiratory: Wheezing resolved, crackles improving Cardiovascular: normal rate and rhythm, S1, S2. GI/Abdominal: soft, nontender, no guarding. Extremities: full range of motion, nontender. Neurological: CN II-XII intact, intact motor, intact sensation. Psychiatric: normal mood. Skin: warm, normal color Discharge diagnosis: Community-acquired pneumonia, acute hypoxemic respiratory failure, COPD exa Time Spent with Patient Time attestation: Total time spent providing and/or coordinating discharge services: Time spent: Greater than 30 minutes EXAM Constitutional Vitals: Temp Pulse Resp BP Pulse Ox 97 F 100 H 18 151/84 91 03/01/22 07:19 03/01/22 07:37 03/01/22 07:37 03/01/22 07:19 03/01/22 07:37 Discharge Data Data Completed and Pending Labs on day of discharge: Labs from last 24 hours 03/01/22 03/01/22 05:28 05:28 WBC 16.8 H RBC 3.40 L Hgb 10.1 L Hct 31.0 L MCV 91.2 MCH 29.7 MCHC 32.6 RDW 13.8 Plt Count 534 H MPV 10.3 Neut % (Auto) 89.4 H Lymph % (Auto) 4.9 L [place] % (Auto) 5.4 Eos % (Auto) 0 Baso % (Auto) 0.3 Lymph # (Auto) 0.83 L [place] # (Auto) 0.90 Eos # (Auto) 0 Baso # (Auto) 0.05 Absolute Neutrophils 15.02 H Sodium 138 Potassium 4.0 Chloride 94 L Carbon Dioxide 35 H Anion Gap 9.0 BUN 23 Creatinine 0.7 GFR Calculation 97 Glucose 155 H Calcium 8.6 Magnesium 2.5 Total Bilirubin 0.3 AST 123 H ALT 111 H Alkaline Phosphatase 127 H Total Protein 5.5 L Albumin 2.2 L Globulin 3.3 Albumin/Globulin Ratio 0.7 L Preliminary micro results at discharge 02/27/22 06:13 Blood Culture - Preliminary Blood 02/27/22 06:05 Blood Culture - Preliminary Blood 02/27/22 13:49 Gram Stain - Preliminary Sputum source - Expectorated Sputum Culture - Preliminary Discharge Plan Patient/Caregiver Discharge Instructions Activity: increase activity as tolerated Diet: Regular Diet Instructions: Using Oxygen at Home (GEN), Pneumonia (GEN) Activity Restrictions/Additional Instructions: Follow-up with the primary care provider in 1 week Prescriptions: New amoxicillin-pot clavulanate 875-125 mg tablet 1 tab PO BID Qty: 14 0RF doxycycline hyclate 100 mg tablet 100 mg PO BID Qty: 14 0RF tamsulosin [Flomax] 0.4 mg capsule 0.8 mg PO QHS Qty: 30 3RF prednisone 20 mg tablet 20 mg PO QDAY 5 Days Qty: 5 0RF Continued Breztri Aerosphere 160-9-4.8 mcg/actuation HFA aerosol inhaler 2 inh inhalation BID Qty: 10.7 6RF Rx Instructions: Inhale two puffs by mouth twice daily. cholecalciferol (vitamin D3) 1 tab PO QDAY 0RF ascorbic acid (vitamin C) 1 tab PO QDAY 0RF albuterol sulfate 90 mcg/actuation HFA aerosol inhaler 2 puff inhalation Q4H PRN (Reason: Shortness Of Breath) 0RF Loratadine-D 5-120 mg tablet extended release 12 hr 1 tab PO QDAY 0RF multivitamin Tablet 1 tab PO QAM 0RF Follow Up Plan Follow up with: Karlie Knight ARNP [Primary Care Provider] - 03/04/22 9:45 am (Please arrive 15 minutes early) Patient Disposition: Home, Self-Care Plan of Treatment: Sepsis-improving Community-acquired pneumonia Patient presented with leukocytosis and tachycardia-improved No hypotension Sputum gram stain culture-pending Blood culture done in the ED-pending Plan Continue Zosyn and azithromycin continue Discontinue IV fluid Follow-up on blood culture and sputum culture Acute hypoxemic hypercapnic respiratory failure COPD exacerbation Started on Solu-Medrol 60 every 8 hourly-continued DuoNebs every 4 hours and as needed Hypokalemia Nutritional Ordered potassium replacement Urinary retention Patient reported urinary retention Started him on Flomax 0.8 Monitor and straight cath as needed DVT prophylaxis-subcu Lovenox CODE STATUS-full code Prognosis: Fair I certify that the patient requires SNF services: No Overall status at discharge: patient is progressing back to baseline Discharge Orders: Discharge Order (Routine); Ordered 03/01/22 Ordered By: Mark CASTRO VTE Deep Vein Thrombosis/Pulmonary Embolism Present on Admission: No
[2022-03-01] MEDS: AZITHROMYCIN 500 MG in DEXTROSE 5% IN WATER 250 ML IV SCH (11:02)
[2022-03-02] MEDS ORDERED: PNEUMOCOCCAL 23-VAL P-SAC VAC 0.5 ML SYRINGE IM ONE (10:00)
--- NOTE | 2022-03-02 19:37 | EKG ---
[facility] Test Date: 2022-02-27 Pat Name: Diomedes Noyola Department: ED Room: Gender: Male Repair Department Manager: RUBÉN : 1955 Requested By: Deon Ortega Order Number: [id number] Reading MD: Leobardo Contreras Measurements Intervals [place] Rate: 110 P: 34 NM: 131 QRS: -9 QRSD: 95 T: 36 QT: 394 QTc: 534 Interpretive Statements Sinus tachycardia Borderline ST depression, diffuse leads Prolonged QT interval Electronically Signed On 03-02-2022 19:36:43 PDT by Leobardo Contreras /[id number]
== END 2022-03-01 12:43 | disposition home or self-care (01) | DRG 871 ==
LOC: ED 05:01 → ICU 08:12
PROVIDERS: ADMIT Internal Medicine; ATTEND Internal Medicine